=== PATIENT | male | born 2000 | race Caucasian/White ===

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

== ENCOUNTER → 2022-02-06 | Day surgery (SDC) | payer BC ==
[~2022-02-06] VITALS: Ht 180.3 cm; Wt 102.1 kg
[~2022-02-06] MED LIST changes: +ACCUTANE20 M1 PO; +PERCOCET 10-321 EACH PO
[2022-02-06 08:30] VITALS: BP 129/57
[2022-02-06 10:53] VITALS: BP 134/80
[2022-02-06 11:07] VITALS: BP 132/78
[2022-02-06 11:23] VITALS: BP 131/83
[2022-02-06 11:38] VITALS: BP 137/80
[2022-02-06 11:53] VITALS: BP 136/81
== END | disposition home or self-care (01) ==
LOC: SDC 02-02 14:00
PROVIDERS: ATTEND Specialist
DX: J34.2 Deviated nasal septum (principal)